=== PATIENT | female | born 1980 | race Caucasian/White ===

== ENCOUNTER → 2016-09-24 | Outpatient (CLI) | payer BC | LOC: MW.CHOBGYN 14:12 | PROVIDERS: ATTEND Advanced Practice Midwife | DX: Z34.90 Encounter for supervision of normal pregnancy, unspecified, unspecified trimester (principal) | CPT/HCPCS: 36415; 82105; 82677; 84702; 86336 ==

== ENCOUNTER 2017-03-19 07:50 | Inpatient (IN) | payer BC ==
[2017-03-19] MEDS ORDERED: Nalbuphine 10 MG/1 ML Vial IVPUSH PRN (08:54)
[2017-03-19] MEDS ORDERED: Methylergonovine 0.2 MG/1 ML Amp IM PRN (08:54)
[2017-03-19] MEDS ORDERED: Misoprostol 200 MCG Tab PO PRN (08:54)
[2017-03-19] MEDS ORDERED: Sodium Chloride 0.9% 10 ML Syringe FLUSH PRN (08:54)
[2017-03-19] MEDS ORDERED: Lidocaine 1% 50 ML MDV INJECT PRN (08:54)
[2017-03-19] MEDS ORDERED: Carboprost Tromethamine 250 MCG/1 ML Amp IM PRN (08:54)
[2017-03-19] MEDS ORDERED: Water For Irrigation,Sterile 1,000 ML Container IRR PRN (08:54)
[2017-03-19] MEDS ORDERED: Sodium Chloride 0.9% 2.5 ML Syringe FLUSH PRN (08:54)
[2017-03-19] MEDS ORDERED: Oxytocin/0.9 % Sodium Chloride 30 UNIT/500 ML BAG IV SCH ×2 (09:00→10:00)
[2017-03-19] MEDS ORDERED: Lactated Ringers 1,000 ML IV SCH (09:00)
--- NOTE | 2017-03-19 09:46 | PCM.LDHP ---
L&D History of Present Illness - General Date of Service: 03/19/17 Admit Problem/Dx: Patient Status Order with Admit Dx/Problem 03/19/17 08:55 Patient Status [ADT] Routine Admission Diagnosis/Problem Admission Diagnosis/Problem 03/19/17 09:42 36yo [facility] 03/11/2017 41 1/7 wks. O+, RI GBS neg. SROM mec stained fluid, early labor Source of Information: Patient History Limitations: Reports: No Limitations - History of Present Illness Introduction:: 36yo [facility] 03/11/2017 41 1/7 wks. O+, RI GBS neg. SROM mec stained fluid, early labor Improves with: Reports: None Worsens with: Reports: None Associated Symptoms: Reports: N - Related Data Allergies/Adverse Reactions: Allergies Allergy/AdvReac Type Severity Reaction Status Date / Time No Known Allergies Allergy Verified 12/12/15 12:07 H&P Review of Systems - Review of Systems: Review Of Systems: See Below General: Reports: No Symptoms HEENT: Reports: No Symptoms Pulmonary: Reports: No Symptoms Cardiovascular: Reports: No Symptoms Gastrointestinal: Reports: No Symptoms Genitourinary: Reports: No Symptoms Musculoskeletal: Reports: No Symptoms Skin: Reports: No Symptoms Psychiatric: Reports: No Symptoms Neurological: Reports: No Symptoms Hematologic/Lymphatic: Reports: No Symptoms Immunologic: Reports: No Symptoms L&D Exam - Exam Exam: See Below - Vital Signs Weight: 104.326 kg - OB Specific Contraction Intensity: Moderate Movement: Active Heart Tones: Present Heart Rate (FHR) Variability: Moderate (6-25 bmp) Presentation: Vertex - Valadez Score Valadez Score Cervix Position: Midposition Valadez Score Consistency: Soft Valadez Score Effacement: >80% Valadez Score Dilation: 3-4 cm Valadez Score Infant's Station: -2 Valadez Score Total: 9 - Exam General: Alert, Oriented, Cooperative HEENT: Hearing Intact Lungs: Normal Respiratory Effort GI/Abdominal Exam: Soft, Non-Tender Rectal Exam: Deferred Genitourinary: Normal bimanual exam, Cervical dilitation, Cervical fluid Back Exam: Full Range of Motion Extremities: Normal Range of Motion, Non-Tender, No Pedal Edema, Normal Capillary Refill Skin: Warm, Dry, Intact Neurological: Reflexes Equal Bilateral, Normal Gait, Normal Speech, Normal Tone Psychiatric: Alert, Normal Affect, Normal Mood - Patient Data Lab Results Last 24 hrs: Laboratory Results - last 24 hr 03/19/17 Range/Units 09:07 WBC 16.21 H (4.0-11.0) K/uL RBC 4.48 (4.30-5.90) M/uL Hgb 14.1 (12.0-16.0) g/dL Hct 41.7 (36.0-46.0) % MCV 93.1 (80.0-98.0) fL MCH 31.5 (27.0-32.0) pg MCHC 33.8 (31.0-37.0) g/dL RDW Std Deviation 46.8 (28.0-62.0) fl RDW Coeff of Morgan 14 (11.0-15.0) % Plt Count 194 (150-400) K/uL MPV 11.40 (7.40-12.00) fL Nucleated RBC % 0.0 /100WBC Nucleated RBCs # 0 K/uL Result Diagrams: 03/19/17 09:07 - Problem List (1) Supervision of normal IUP (intrauterine ) in primigravida SNOMED Code(s): 82176181, 146356439, 966613305 ICD Code: Z34.00 - ENCNTR FOR SUPRVSN OF NORMAL FIRST , UNSP TRIMESTER Status: Acute Priority: High Current Visit: Yes Qualifiers: Trimester: third trimester Qualified Code(s): Z34.03 - Encounter for supervision of normal first , third trimester (2) Meconium in amniotic fluid affecting management of mother in third trimester SNOMED Code(s): 75771995 ICD Code: O36.8930 - MATERNAL CARE FOR OTH PROBLEMS, THIRD TRIMESTER, UNSP Status: Acute Priority: High Current Visit: Yes Qualifiers: Fetus number: single or unspecified fetus Qualified Code(s): O36.8930 - Maternal care for other specified problems, third trimester, not applicable or unspecified Problem List Initiated/Reviewed/Updated: Yes Orders Last 24hrs: Active Orders 24 hr Category Date Time Status Patient Status [ADT] Routine ADT 03/19/17 08:55 Active Heart Tones [RC] CONTINUOUS Care 03/19/17 08:55 Active Non Stress Test [RC] PER UNIT ROUTINE Care 03/19/17 08:55 Active May Shower [RC] ASDIRECTED Care 03/19/17 08:55 Active Notify Provider [RC] PRN Care 03/19/17 08:55 Active Peripheral IV Care [RC] . DIRECTED Care 03/19/17 08:54 Active Up ad Yarely [RC] ASDIRECTED Care 03/19/17 08:55 Active Vaginal Exam [RC] PRN Care 03/19/17 08:55 Active Vital Signs [RC] PER UNIT ROUTINE Care 03/19/17 08:55 Active Regular Diet [DIET] Diet 03/19/17 Lunch Active TYPE AND SCREEN [BBK] Routine Lab 03/19/17 09:07 Received Carboprost Tromethamine [Hemabate DS] Med 03/19/17 08:54 Active 250 mcg IM ASDIRECTED PRN Lactated Ringers [Ringers, Lactated] 1,000 ml Med 03/19/17 09:00 Active IV ASDIRECTED Lidocaine 1% [Xylocaine 1%] Med 03/19/17 08:54 Active 50 ml INJECT .ONCE PRN Methylergonovine [Methergine] Med 03/19/17 08:54 Active 0.2 mg IM ASDIRECTED PRN Misoprostol [Cytotec] Med 03/19/17 08:54 Active 200 mcg PO .ONCE PRN Nalbuphine [Nubain] Med 03/19/17 08:54 Active 10 mg IVPUSH Q1H PRN Oxytocin/0.9 % Sodium Chloride [Oxytocin 30 Unit/500 ML Med 03/19/17 09:00 Active -NS] 30 unit in 500 ml IV TITRATE Sodium Chloride 0.9% [Saline Flush] Med 03/19/17 08:54 Active 10 ml FLUSH ASDIRECTED PRN Sodium Chloride 0.9% [Saline Flush] Med 03/19/17 08:54 Active 2.5 ml FLUSH ASDIRECTED PRN Water For Irrigation,Sterile [Sterile Water for Med 03/19/17 08:54 Active Irrigation] 1,000 ml IRR ASDIRECTED PRN Scalp Electrode [WOMSER] Per Unit Routine Oth 03/19/17 08:55 Ordered Peripheral IV Insertion Adult [OM.PC] Routine Oth 03/19/17 08:55 Ordered Resuscitation Status Routine Resus Stat 03/19/17 08:54 Ordered Medication Orders Carboprost Tromethamine (Hemabate Ds) 250 mcg IM ASDIRECTED PRN PRN Reason: Post Hemorrhage Lactated Ringer's (Ringers, Lactated) 1,000 mls @ 150 mls/hr IV ASDIRECTED RUBEN Oxytocin/Sodium Chloride (Oxytocin 30 Unit/500 Ml-Ns) 30 unit in 500 mls @ 250 mls/hr IV TITRATE RUBEN Lidocaine HCl (Xylocaine 1%) 50 ml INJECT .ONCE PRN PRN Reason: Laceration repair Methylergonovine Maleate (Methergine) 0.2 mg IM ASDIRECTED PRN PRN Reason: Post Hemorrhage Misoprostol (Cytotec) 200 mcg PO .ONCE PRN PRN Reason: Post Hemorrhage Nalbuphine HCl (Nubain) 10 mg IVPUSH Q1H PRN PRN Reason: Pain (severe 7-10) Sodium Chloride (Saline Flush) 10 ml FLUSH ASDIRECTED PRN PRN Reason: Keep Vein Open Sodium Chloride (Saline Flush) 2.5 ml FLUSH ASDIRECTED PRN PRN Reason: Keep Vein Open Sterile Water (Sterile Water For Irrigation) 1,000 ml IRR ASDIRECTED PRN PRN Reason: delivery Assessment/Plan Comment:: Labor A: 36yo EDC 03/11/2017 41 1/7 wks. O+, RI GBS neg. SROM mec stained fluid, early labor P: Admit to L&D, start pitocin per protocol due to SROm at 9.5hours, anticipate . Dr Jarrett updated on pt status
[2017-03-19] MEDS ORDERED: Terbutaline 1 MG/ML SDV SUBCUT PRN (09:57)
--- NOTE | 2017-03-19 13:59 | PCM.PRNOTE ---
- Free Text/Narrative Note: Asked to see patient for epidural request for labor pain. Pt id,chart review and consent obtained. discussed epidural procedure and risks including nerve pain, nerve damage, bleeding, infection and/or unsuccessful placement. patient agrees. sitting up, sterile betadine prep x 3, sterile drape. 1% lidocaine SQ at L4. #25 touhy needle GRETEL saline to approximately 5 cm. No heme, no paresthesia. catheter easily placed to 12cm at skin. test dose 3 ml 1.5% lidocaine with epinephrine 1:200,000. negative reaction. Pt. bolused with 100 mcg fentanyl and 6 ml 0.2% ropivicaine. Pt felt relief after three contractions. level with cold/wet sensation found to be t10 on right and minimal level on left, yet pt does not c/o pain on left. pain now 2/10. PCEA pump of 0.2% ropivicaine with fentanyl 2 mcg/ml running at 8 ml/hr with bolus of 5ml/20 min with lockout volume limit of 23 ml. pt educated on use of PCEA pump. No complications noted
--- NOTE | 2017-03-19 14:01 | PCM.PREANE ---
Preanesthetic Assessment - Procedure Proposed Procedure: labor epidural - Anesthesia/Transfusion/Family Hx Anesthesia History: Prior Anesthesia Without Reaction (wisdom teeth) Family History of Anesthesia Reaction: No Transfusion History: No Prior Transfusion(s) - Review of Systems General: No Symptoms Pulmonary: No Symptoms (ex smoker) Cardiovascular: No Symptoms Gastrointestinal: No Symptoms Neurological: No Symptoms Other: Reports: None - Physical Assessment Height: 1.7 m Weight: 104.326 kg ASA Class: 2 Mental Status: Alert & Oriented x3 Airway Class: Mallampati = 1 Dentition: Reports: Normal Dentition Thyro-Mental Finger Breadths: 4 Mouth Opening Finger Breadths: 3 ROM/Head Extension: Full Lungs: Clear to Auscultation, Normal Respiratory Effort Cardiovascular: Regular Rate, Regular Rhythm - Lab Values: Laboratory Last Values WBC 16.21 K/uL (4.0-11.0) H 03/19/17 09:07 RBC 4.48 M/uL (4.30-5.90) 03/19/17 09:07 Hgb 14.1 g/dL (12.0-16.0) 03/19/17 09:07 Hct 41.7 % (36.0-46.0) 03/19/17 09:07 MCV 93.1 fL (80.0-98.0) 03/19/17 09:07 MCH 31.5 pg (27.0-32.0) 03/19/17 09:07 MCHC 33.8 g/dL (31.0-37.0) 03/19/17 09:07 RDW Std Deviation 46.8 fl (28.0-62.0) 03/19/17 09:07 RDW Coeff of Morgan 14 % (11.0-15.0) 03/19/17 09:07 Plt Count 194 K/uL (150-400) 03/19/17 09:07 MPV 11.40 fL (7.40-12.00) 03/19/17 09:07 Nucleated RBC % 0.0 /100WBC 03/19/17 09:07 Nucleated RBCs # 0 K/uL 03/19/17 09:07 Blood Type O POSITIVE 03/19/17 09:07 Antibody Screen NEGATIVE 03/19/17 09:07 - Allergies Allergies/Adverse Reactions: Allergies Allergy/AdvReac Type Severity Reaction Status Date / Time No Known Allergies Allergy Verified 12/12/15 12:07 - Blood Blood Available: Yes Product(s) Available: PRBC - Acknowledgements Anesthesia Type Planned: Epidural Pt an Appropriate Candidate for the Planned Anesthesia: Yes Alternatives and Risks of Anesthesia Discussed w Pt/Guardian: Yes Pt/Guardian Understands and Agrees with Anesthesia Plan: Yes PreAnesthesia Questionnaire Gastrointestinal History: Reports: Hemorrhoids STATOR TESTER History: Reports: Other (See Below) Other OB/BYN History: HSG - Past Surgical History HEENT Surgical History: Reports: Oral Surgery - SUBSTANCE USE Smoking Status *Q: Never Smoker Second Hand Smoke Exposure: No Recreational Drug Use History: No - CURRENT (IN HOUSE) MEDS Current Meds: Current Medications Carboprost Tromethamine (Hemabate Ds) 250 mcg IM ASDIRECTED PRN PRN Reason: Post Hemorrhage Lactated Ringer's (Ringers, Lactated) 1,000 mls @ 150 mls/hr IV ASDIRECTED RUBEN Last Admin: 03/19/17 10:15 Dose: 150 mls/hr Oxytocin/Sodium Chloride (Oxytocin 30 Unit/500 Ml-Ns) 30 unit in 500 mls @ 250 mls/hr IV TITRATE RUBEN Oxytocin/Sodium Chloride (Oxytocin 30 Unit/500 Ml-Ns) 30 unit in 500 mls @ 2 mls/hr IV TITRATE RUBEN; 2 MUNITS/MIN PRN Reason: Protocol Last Titration: 03/19/17 12:51 Dose: 2 munits/min, 2 mls/hr Lidocaine HCl (Xylocaine 1%) 50 ml INJECT .ONCE PRN PRN Reason: Laceration repair Methylergonovine Maleate (Methergine) 0.2 mg IM ASDIRECTED PRN PRN Reason: Post Hemorrhage Misoprostol (Cytotec) 200 mcg PO .ONCE PRN PRN Reason: Post Hemorrhage Nalbuphine HCl (Nubain) 10 mg IVPUSH Q1H PRN PRN Reason: Pain (severe 7-10) Last Admin: 03/19/17 11:49 Dose: 10 mg Sodium Chloride (Saline Flush) 10 ml FLUSH ASDIRECTED PRN PRN Reason: Keep Vein Open Sodium Chloride (Saline Flush) 2.5 ml FLUSH ASDIRECTED PRN PRN Reason: Keep Vein Open Sterile Water (Sterile Water For Irrigation) 1,000 ml IRR ASDIRECTED PRN PRN Reason: delivery Terbutaline Sulfate (Brethine) 0.25 mg SUBCUT ASDIRECTED PRN PRN Reason: Tacysystole
[2017-03-19] MEDS ORDERED: Acetaminophen 500 MG Tab PO PRN ×2 (16:59)
[2017-03-19] MEDS ORDERED: Ibuprofen 400 MG Tab PO PRN (16:59)
[2017-03-19] MEDS ORDERED: oxyCODONE 5 MG Tab PO PRN (16:59)
[2017-03-19] MEDS ORDERED: Lanolin 100% Cream 7 GM Tube TOP PRN (16:59)
[2017-03-19] MEDS ORDERED: Ibuprofen 800 MG Tab PO PRN (16:59)
[2017-03-19] MEDS ORDERED: Bisacodyl 10 MG Supp RECTAL PRN (16:59)
[2017-03-19] MEDS ORDERED: Witch Hazel Medicated Pads 40/Jar TOP PRN (16:59)
[2017-03-19] MEDS ORDERED: Benzocaine/Menthol 20%-0.5% Spray 78 GM Cannister TOP PRN (16:59)
[2017-03-19] MEDS ORDERED: Docusate Sodium 100 MG Cap PO PRN (16:59)
--- NOTE | 2017-03-19 17:09 | PCM.DEL ---
L & D Note - General Info Date of Service: 03/19/17 Mother's Due Date: 03/11/17 - Delivery Note Labor: Spontaneous Delivery Outcome: Livebirth Infant Delivery Method: Spontaneous Vaginal Delivery-Single Delivery Mode: Spontaneous Presentation: Vertex Nuchal Cord: None Anesthesia Type: Epidural Anesthetic: Lidocaine (Xylocaine) 1% Plain Local Anesthetic Volume: 2cc Amniotic Fluid Description: Meconium Stained Episiotomy Type: None Laceration: 2nd Degree, Labial Suture type: Vicryl Suture size: other (3-0 and 4-0) Cord: 3 Vessels Estimated Blood Loss: 200 Resuscitation Needed: No [place]: Stimulated Score 1 min: 8 Score 5 min: 9 Second Stage Interventions: Reports: Pushing, Pulls Own Legs Back Delivery Comments (Free Text/Narrative):: of viable male over intact perineum, head delivered with great pushing, shoulders and body followed easily, Dad helped with the delivery of body. Dr Godoy at bs for delivery due to mec stained fluid. Infant place on mothers abdomen with MD at bs for evaluation, Spont cry. Delayed cord clamping for 3- 4min. Pitocin to IVF. Cord clamped and cut by FOB. Cord blood collected. Placenta delivered grossly intact. Inspection noted 2nd degree perineal lac and left labial lac, both repaired in anatomical manor. EBL 200cc, APGARS 8/9. Wt pending bonding. Mother and baby left in stable condition for recovery. Induction Criteria - Augmentation Estimated Pelvis: Reports: Adequate Weight Estimated:: Reports: AGA Reassuring Monitoring Strip: Yes Absence of Tachy Systole: Yes - General Info Admission Dx/Problem (Free Text): Patient Status Order with Admit Dx/Problem 03/19/17 08:55 Patient Status [ADT] Routine Admission Diagnosis/Problem Admission Diagnosis/Problem 03/19/17 09:42 36yo EDC 03/11/2017 41 1/7 wks. O+, RI GBS neg. SROM mec stained fluid, early labor Functional Status: Reports: Pain Controlled - Review of Systems General: Reports: No Symptoms HEENT: Reports: No Symptoms Pulmonary: Reports: No Symptoms Cardiovascular: Reports: No Symptoms Gastrointestinal: Reports: No Symptoms Genitourinary: Reports: No Symptoms Musculoskeletal: Reports: No Symptoms Skin: Reports: No Symptoms Neurological: Reports: No Symptoms Psychiatric: Reports: No Symptoms - Patient Data Weight - Most Recent: 104.326 kg Lab Results Last 24 Hours: Laboratory Results - last 24 hr 03/19/17 03/19/17 Range/Units 09:07 09:07 WBC 16.21 H (4.0-11.0) K/uL RBC 4.48 (4.30-5.90) M/uL Hgb 14.1 (12.0-16.0) g/dL Hct 41.7 (36.0-46.0) % MCV 93.1 (80.0-98.0) fL MCH 31.5 (27.0-32.0) pg MCHC 33.8 (31.0-37.0) g/dL RDW Std Deviation 46.8 (28.0-62.0) fl RDW Coeff of Morgan 14 (11.0-15.0) % Plt Count 194 (150-400) K/uL MPV 11.40 (7.40-12.00) fL Nucleated RBC % 0.0 /100WBC Nucleated RBCs # 0 K/uL Blood Type O POSITIVE Antibody Screen NEGATIVE Med Orders - Current: Current Medications Acetaminophen (Tylenol Extra Strength) 500 mg PO Q4H PRN PRN Reason: Pain Acetaminophen (Tylenol Extra Strength) 1,000 mg PO Q4H PRN PRN Reason: Pain Benzocaine/Menthol (Dermoplast Pain Relief 20%-0.5% [place]) 78 gm TOP ASDIRECTED PRN PRN Reason: Perineal Comfort Measure Bisacodyl (Dulcolax) 10 mg RECTAL .ONCE PRN PRN Reason: Constipation Docusate Sodium (Colace) 100 mg PO BID PRN PRN Reason: Constipation Emollient Ointment (Lansinoh Hpa) 0 gm TOP ASDIRECTED PRN PRN Reason: Sore Nipples Ibuprofen (Motrin) 400 mg PO Q4H PRN PRN Reason: Pain Ibuprofen (Motrin) 800 mg PO Q6H PRN PRN Reason: Pain Oxycodone HCl (Oxycodone) 5 mg PO Q2H PRN PRN Reason: Pain Witch Amy (Tucks) 1 pad TOP ASDIRECTED PRN PRN Reason: comfort care Discontinued Medications Carboprost Tromethamine (Hemabate Ds) 250 mcg IM ASDIRECTED PRN PRN Reason: Post Hemorrhage Lactated Ringer's (Ringers, Lactated) 1,000 mls @ 150 mls/hr IV ASDIRECTED RUBEN Last Admin: 03/19/17 10:15 Dose: 150 mls/hr Oxytocin/Sodium Chloride (Oxytocin 30 Unit/500 Ml-Ns) 30 unit in 500 mls @ 250 mls/hr IV TITRATE RUBEN Oxytocin/Sodium Chloride (Oxytocin 30 Unit/500 Ml-Ns) 30 unit in 500 mls @ 2 mls/hr IV TITRATE RUBEN; 2 MUNITS/MIN PRN Reason: Protocol Last Titration: 03/19/17 12:51 Dose: 2 munits/min, 2 mls/hr Lidocaine HCl (Xylocaine 1%) 50 ml INJECT .ONCE PRN PRN Reason: Laceration repair Methylergonovine Maleate (Methergine) 0.2 mg IM ASDIRECTED PRN PRN Reason: Post Hemorrhage Misoprostol (Cytotec) 200 mcg PO .ONCE PRN PRN Reason: Post Hemorrhage Nalbuphine HCl (Nubain) 10 mg IVPUSH Q1H PRN PRN Reason: Pain (severe 7-10) Last Admin: 03/19/17 11:49 Dose: 10 mg Sodium Chloride (Saline Flush) 10 ml FLUSH ASDIRECTED PRN PRN Reason: Keep Vein Open Sodium Chloride (Saline Flush) 2.5 ml FLUSH ASDIRECTED PRN PRN Reason: Keep Vein Open Sterile Water (Sterile Water For Irrigation) 1,000 ml IRR ASDIRECTED PRN PRN Reason: delivery Terbutaline Sulfate (Brethine) 0.25 mg SUBCUT ASDIRECTED PRN PRN Reason: Tacysystole - Exam General: Alert, Oriented, Cooperative, No Acute Distress Lungs: Normal Respiratory Effort Cardiovascular: Murmurs GI/Abdominal Exam: Soft (Female) Exam: Normal External Exam, Normal Bimanual Exam, Vaginal Bleeding, Vaginal Tears Back Exam: Full Range of Motion Extremities: Normal Range of Motion, Non-Tender, No Pedal Edema, Normal Capillary Refill Skin: Warm Wound/Incisions: Healing Well Neurological: No New Focal Deficit, Normal Speech, Normal Tone Psy/Mental Status: Alert, Normal Affect, Normal Mood - Problem List & Annotations (1) Supervision of normal IUP (intrauterine ) in primigravida SNOMED Code(s): 18562560, 884581108, 099126182 Code(s): Z34.00 - ENCNTR FOR SUPRVSN OF NORMAL FIRST , UNSP TRIMESTER Status: Acute Priority: High Current Visit: Yes Qualifiers: Trimester: third trimester Qualified Code(s): Z34.03 - Encounter for supervision of normal first , third trimester (2) Meconium in amniotic fluid affecting management of mother in third trimester SNOMED Code(s): 01927413 Code(s): O36.8930 - MATERNAL CARE FOR OTH PROBLEMS, THIRD TRIMESTER, UNSP Status: Acute Priority: High Current Visit: Yes Qualifiers: Fetus number: single or unspecified fetus Qualified Code(s): O36.8930 - Maternal care for other specified problems, third trimester, not applicable or unspecified (3) (normal spontaneous vaginal delivery) SNOMED Code(s): 98606790 Code(s): O80 - ENCOUNTER FOR FULL-TERM UNCOMPLICATED DELIVERY Status: Acute Priority: High Current Visit: Yes - Problem List Review Problem List Initiated/Reviewed/Updated: Yes - My Orders Last 24 Hours: My Active Orders 03/19/17 08:54 Peripheral IV Care [RC] . DIRECTED 03/19/17 08:55 Heart Tones [RC] CONTINUOUS May Shower [RC] ASDIRECTED Up ad Yarely [RC] ASDIRECTED Vital Signs [RC] PER UNIT ROUTINE 03/19/17 09:57 Bedrest Bathroom Privileges [RC] ASDIRECTED Oxygen Therapy [RC] ASDIRECTED 03/19/17 16:59 May Shower [RC] ASDIRECTED Up ad Yarely [RC] ASDIRECTED Vital Signs [RC] PER UNIT ROUTINE Acetaminophen [Tylenol Extra Strength] 1,000 mg PO Q4H PRN Acetaminophen [Tylenol Extra Strength] 500 mg PO Q4H PRN Benzocaine/Menthol [Dermoplast Pain Relief 20%-0.5% [place]] 78 gm TOP ASDIRECTED PRN Bisacodyl [Dulcolax] 10 mg RECTAL .ONCE PRN Docusate Sodium [Colace] 100 mg PO BID PRN Ibuprofen [Motrin] 400 mg PO Q4H PRN Ibuprofen [Motrin] 800 mg PO Q6H PRN Lanolin [Lansinoh HPA] See Dose Instructions TOP ASDIRECTED PRN Witch Amy [Tucks] 1 pad TOP ASDIRECTED PRN oxyCODONE 5 mg PO Q2H PRN Assess Lochia [WOMSER] Per Unit Routine Assess Uterine Involution [WOMSER] Per Unit Routine Peripheral IV Discontinue [OM.PC] Routine Resuscitation Status Routine 03/19/17 17:01 Patient Status [ADT] Routine 03/19/17 Dinner Regular Diet [DIET] - Assessment Assessment:: of viable male. APGARS 8/9, Wt pending bonding. EBL 200cc, 2nd deg lac and left labial lac both repaired. Mother and baby left in stable condition for recovery. - Plan Plan:: Labor A: 36yo EDC 03/11/2017 41 1/7 wks. O+, RI GBS neg. SROM mec stained fluid, early labor P: Admit to L&D, start pitocin per protocol due to SROm at 9.5hours, anticipate . Dr Jarrett updated on pt status Delivery P: routine pp plan of care.
--- NOTE | 2017-03-20 07:41 | PCM48HPAN ---
Post Anesthesia Note - EVALUATION WITHIN 48HRS OF ANESTHETIC Vital Signs in Normal Range: Yes Patient Participated in Evaluation: Yes Respiratory Function Stable: Yes Airway Patent: Yes Cardiovascular Function Stable: Yes Hydration Status Stable: Yes Pain Control Satisfactory: Yes Nausea and Vomiting Control Satisfactory: Yes Mental Status Recovered: Yes
[2017-03-20 10:39] VITALS: BP 133/91
--- NOTE | 2017-03-20 13:05 | PCM.DCSUM1 ---
Discharge Summary - Hospital Course Free Text/Narrative:: Discharge home with infant. Follow up 6 weeks or sooner if needed. - Discharge Data Discharge Date: 03/20/17 Discharge Disposition: Home, Self-Care 01 Condition: Good - Discharge Diagnosis/Problem(s) (1) Supervision of normal IUP (intrauterine ) in primigravida SNOMED Code(s): 43983834, 161431529, 568145345 ICD Code: Z34.00 - ENCNTR FOR SUPRVSN OF NORMAL FIRST , UNSP TRIMESTER Status: Acute Priority: High Current Visit: Yes Qualifiers: Trimester: third trimester Qualified Code(s): Z34.03 - Encounter for supervision of normal first , third trimester (2) Meconium in amniotic fluid affecting management of mother in third trimester SNOMED Code(s): 37886747 ICD Code: O36.8930 - MATERNAL CARE FOR OTH PROBLEMS, THIRD TRIMESTER, UNSP Status: Acute Priority: High Current Visit: Yes Qualifiers: Fetus number: single or unspecified fetus Qualified Code(s): O36.8930 - Maternal care for other specified problems, third trimester, not applicable or unspecified (3) (normal spontaneous vaginal delivery) SNOMED Code(s): 04837187 ICD Code: O80 - ENCOUNTER FOR FULL-TERM UNCOMPLICATED DELIVERY Status: Acute Priority: High Current Visit: Yes - Patient Instructions Diet: Usual Diet as Tolerated Activity: As Tolerated, Rest and Relax Today Driving: May Drive Today Showering/Bathing: May Shower Notify Provider of: Fever, Increased Pain, Swelling and Redness, Nausea and/or Vomiting Other/Special Instructions: Discharge home with . Follow up 6 weeks or sooner if needed. - Discharge Plan Referrals: [facility] [Outside] Nicolette Hein CNM [Mid-] - 05/01/17 1:30 pm - General Info Date of Service: 03/20/17 Admission Dx/Problem (Free Text: Patient Status Order with Admit Dx/Problem 03/19/17 08:55 Patient Status [ADT] Routine Admission Diagnosis/Problem Admission Diagnosis/Problem 03/19/17 09:42 36yo EDC 03/11/2017 41 1/7 wks. O+, RI GBS neg. SROM mec stained fluid, early labor Functional Status: Reports: Pain Controlled, Tolerating Diet, Ambulating, Urinating - Review of Systems General: Reports: No Symptoms HEENT: Reports: No Symptoms Pulmonary: Reports: No Symptoms Cardiovascular: Reports: No Symptoms Gastrointestinal: Reports: No Symptoms Genitourinary: Reports: No Symptoms Musculoskeletal: Reports: No Symptoms Skin: Reports: No Symptoms Neurological: Reports: No Symptoms Psychiatric: Reports: No Symptoms - Patient Data Vitals - Most Recent: Last Vital Signs Temp 37.2 C 03/20/17 10:37 Pulse 98 03/20/17 10:37 Resp 16 03/20/17 10:37 BP 133/91 H 03/20/17 10:37 Pulse Ox 97 03/20/17 10:37 Weight - Most Recent: 104.326 kg Med Orders - Current: Current Medications Acetaminophen (Tylenol Extra Strength) 500 mg PO Q4H PRN PRN Reason: Pain Acetaminophen (Tylenol Extra Strength) 1,000 mg PO Q4H PRN PRN Reason: Pain Benzocaine/Menthol (Dermoplast Pain Relief 20%-0.5% [place]) 78 gm TOP ASDIRECTED PRN PRN Reason: Perineal Comfort Measure Last Admin: 03/19/17 20:16 Dose: 1 can Bisacodyl (Dulcolax) 10 mg RECTAL .ONCE PRN PRN Reason: Constipation Docusate Sodium (Colace) 100 mg PO BID PRN PRN Reason: Constipation Last Admin: 03/20/17 09:08 Dose: 100 mg Emollient Ointment (Lansinoh Hpa) 0 gm TOP ASDIRECTED PRN PRN Reason: Sore Nipples Last Admin: 03/19/17 20:16 Dose: 1 tube Ibuprofen (Motrin) 400 mg PO Q4H PRN PRN Reason: Pain Ibuprofen (Motrin) 800 mg PO Q6H PRN PRN Reason: Pain Last Admin: 03/20/17 09:08 Dose: 800 mg Oxycodone HCl (Oxycodone) 5 mg PO Q2H PRN PRN Reason: Pain Witch Amy (Tucks) 1 pad TOP ASDIRECTED PRN PRN Reason: comfort care Last Admin: 03/19/17 20:17 Dose: 1 tub Discontinued Medications Carboprost Tromethamine (Hemabate Ds) 250 mcg IM ASDIRECTED PRN PRN Reason: Post Hemorrhage Lactated Ringer's (Ringers, Lactated) 1,000 mls @ 150 mls/hr IV ASDIRECTED RUBEN Last Admin: 03/19/17 10:15 Dose: 150 mls/hr Oxytocin/Sodium Chloride (Oxytocin 30 Unit/500 Ml-Ns) 30 unit in 500 mls @ 250 mls/hr IV TITRATE RUBEN Oxytocin/Sodium Chloride (Oxytocin 30 Unit/500 Ml-Ns) 30 unit in 500 mls @ 2 mls/hr IV TITRATE RUBEN; 2 MUNITS/MIN PRN Reason: Protocol Last Titration: 03/19/17 16:22 Dose: 250 munits/min, 250 mls/hr Lidocaine HCl (Xylocaine 1%) 50 ml INJECT .ONCE PRN PRN Reason: Laceration repair Last Admin: 03/19/17 17:09 Dose: 50 ml Methylergonovine Maleate (Methergine) 0.2 mg IM ASDIRECTED PRN PRN Reason: Post Hemorrhage Misoprostol (Cytotec) 200 mcg PO .ONCE PRN PRN Reason: Post Hemorrhage Nalbuphine HCl (Nubain) 10 mg IVPUSH Q1H PRN PRN Reason: Pain (severe 7-10) Last Admin: 03/19/17 11:49 Dose: 10 mg Sodium Chloride (Saline Flush) 10 ml FLUSH ASDIRECTED PRN PRN Reason: Keep Vein Open Sodium Chloride (Saline Flush) 2.5 ml FLUSH ASDIRECTED PRN PRN Reason: Keep Vein Open Sterile Water (Sterile Water For Irrigation) 1,000 ml IRR ASDIRECTED PRN PRN Reason: delivery Terbutaline Sulfate (Brethine) 0.25 mg SUBCUT ASDIRECTED PRN PRN Reason: Tacysystole - Exam General: Reports: Alert, Oriented, Cooperative, No Acute Distress Lungs: Reports: Normal Respiratory Effort GI/Abdominal Exam: Soft, Non-Tender (Female) Exam: Vaginal Bleeding Rectal (Female) Exam: Deferred Back Exam: Reports: Full Range of Motion Extremities: Normal Range of Motion, Non-Tender, No Pedal Edema, Normal Capillary Refill Skin: Reports: Warm, Dry, Intact Wound/Incisions: Reports: Healing Well Neurological: Reports: No New Focal Deficit, Normal Gait, Normal Speech, Normal Tone Psy/Mental Status: Reports: Alert, Normal Affect, Normal Mood *Q Meaningful Use (DIS) - VTE *Q VTE Criteria *Q: - Stroke *Q Stroke Criteria *Q: - AMI *Q AMI Criteria *Q:
== END 2017-03-20 18:40 | disposition home or self-care (01) | DRG 560 ==
LOC: MW.OBCHECK 07:50 → MW.OB 08:49 → OBSVTOIN 16:19 → MW.OB 16:19
PROVIDERS: ADMIT Obstetrics & Gynecology; ATTEND Obstetrics & Gynecology
PROC: 10E0XZZ Delivery of Products of Conception, External Approach (ICD-10-PCS; principal; 2017-03-19)
PROC: 0UQMXZZ Repair Vulva, External Approach (ICD-10-PCS; 2017-03-19)
PROC: 00HU33Z Insertion of Infusion Device into Spinal Canal, Percutaneous Approach (ICD-10-PCS; 2017-03-19)
PROC: 3E0R3BZ Introduction of Anesthetic Agent into Spinal Canal, Percutaneous Approach (ICD-10-PCS; 2017-03-19)
DX: O42.02 Full-term premature rupture of membranes, onset of labor within 24 hours of rupture (principal); Z3A.41 41 weeks gestation of pregnancy; Z37.0 Single live birth; O77.0 Labor and delivery complicated by meconium in amniotic fluid; O70.0 First degree perineal laceration during delivery
CPT/HCPCS: 01967; 36415; 51702; 59025; 59409; 85027; 86850; 86900; 86901; A9270-GY; J2300; J2590; J7120